=== PATIENT | male | born 1985 | race Caucasian/White ===

== ENCOUNTER 2018-04-28 09:30 | Inpatient (IN) | payer OTHER ==
--- NOTE | 2018-04-28 09:59 | EDPHY ---
HPI/HX/ROS/PE/MDM Narrative: CHIEF COMPLAINT: Back pain, bilateral lower extremity numbness HPI: This patient is a 32 year old male with history of multiple lumbar disc herniations. He follows up with Dr. Tang, neurosurgeon, for this. Yesterday afternoon at work, his low back pain became increasingly worse. He took two Celebrex yesterday and two today as prescribed, but has been unable to relive his pain. He woke this morning at 1am with severe pain. He has developed numbness and paresthesias in his bilateral lower extremities to his feet. He denies any incontinence of bowel or bladder. He called his neurosurgeon's office and was instructed to come to ER for further evaluation. His neurosurgeon has recommended surgical intervention in the past but he has avoided this. He denies any recent trauma or unusual strenuous activities. No recent illness. He denies fever, chest pain, shortness of breath, vomiting, headache, or other associated symptoms. REVIEW OF SYSTEMS: A comprehensive 10 system review of systems is otherwise negative aside from elements mentioned in the history of present illness and medical decision making. PMH: Lumbar disc herniation. History of GI bleed. 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 Lives in [place]. PHYSICAL EXAM: General:Patient is alert, in no acute distress. ENT:Eyes are normal to inspection. ENT inspection normal. Neck: Normal inspection. Full range of motion. Respiratory:No respiratory distress. Breath sounds normal bilaterally. Cardiovascular: Regular rate and rhythm. Strong peripheral pulses. Normal cap refill. Abdomen:The abdomen is nontender to palpation. There are no peritoneal signs. There are normal bowel sounds. Back: Normal to inspection. No tenderness to palpation. Skin: Normal color. No rash. Warm and dry. Extremities: Normal appearance. ROM in bilateral lower extremities is limited due to pain. Neuro: Oriented x3. Normal motor function. Normal sensory function. ED Course: 32 y/o male with known lumbar disc herniation presents with worsening low back pain and numbness and paresthesias in his bilateral lower extremities. Plan to consult with neurosurgery. Plan for labs incluidng CBC, chemistries. Plan to administer 0.5mg IV Dilaudid for pain relief. 10:30 ESPERANZA Mcintosh for neurosurgery, at bedside. Per nurse report, she has evaluated the patient. Neurosurgery requests MRI lumbar spine without contrast for further evaluation. 11:15 Patient continues to experience severe pain, worsened following his MRI. Plan to administer an additional 1mg IV Dilaudid for pain relief. 11:[address] Avila, radiologist. MRI shows multilevel degenerative disk / joint disease of the lumbar spine. Large central protrusion at L4-L5 that causes severe central spinal canal narrowing. Patient to be admitted. See neurosurgery consult note for details. - Data Points Imaging Results: Imaging Impressions Lumbar Spine MRI 04/28/18 10:36 Impression: Multilevel degenerative disk and degenerative joint disease of the lumbar spine superimposed on a component of congenital spinal stenosis. Most significant level is at L4-L5 where there is a large central protrusion that with the degenerative disk and degenerative joint disease causes severe central spinal canal narrowing. Please see detailed description by level above. Results called and discussed with Jose Figueroa MD, on 04/28/2018, 1145 hours. Laboratory Results: Laboratory Results 04/28/18 10:10 04/28/18 10:10 04/28/18 04/28/18 10:10 10:10 WBC 6.79 10^3/uL 10^3/uL (3.80-9.50) RBC 5.48 10^6/uL 10^6/uL (4.40-6.38) Hgb 16.0 g/dL g/dL (13.7-17.5) Hct 46.8 % % (40.0-51.0) MCV 85.4 fL fL (81.5-99.8) MCH 29.2 pg pg (27.9-34.1) MCHC 34.2 g/dL g/dL (32.4-36.7) RDW 12.3 % % (11.5-15.2) Plt Count 177 10^3/uL 10^3/uL (150-400) MPV 10.9 fL fL (8.7-11.7) Neut % (Auto) 68.5 % % (39.3-74.2) Lymph % (Auto) 23.7 % % (15.0-45.0) [place] % (Auto) 7.4 % % (4.5-13.0) Eos % (Auto) 0.0 % L % (0.6-7.6) Baso % (Auto) 0.3 % % (0.3-1.7) Nucleat RBC Rel Count 0.0 % % (0.0-0.2) Absolute Neuts (auto) 4.65 10^3/uL 10^3/uL (1.70-6.50) Absolute Lymphs (auto) 1.61 10^3/uL 10^3/uL (1.00-3.00) Absolute Monos (auto) 0.50 10^3/uL 10^3/uL (0.30-0.80) Absolute Eos (auto) 0.00 10^3/uL L 10^3/uL (0.03-0.40) Absolute Basos (auto) 0.02 10^3/uL 10^3/uL (0.02-0.10) Absolute Nucleated RBC 0.00 10^3/uL 10^3/uL (0-0.01) Immature Gran % 0.1 % % (0.0-1.1) Immature Gran # 0.01 10^3/uL 10^3/uL (0.00-0.10) Sodium 140 mEq/L mEq/L (135-145) Potassium 4.0 mEq/L mEq/L (3.3-5.0) Chloride 108 mEq/L mEq/L (97-110) Carbon Dioxide 20 mEq/l L mEq/l (22-31) Anion Gap 12 mEq/L mEq/L (8-16) BUN 13 mg/dL mg/dL (7-23) Creatinine 0.9 mg/dL mg/dL (0.7-1.3) Estimated GFR > 60 Glucose 100 mg/dL mg/dL (70-100) Calcium 9.9 mg/dL mg/dL (8.5-10.4) Medications Given: Acetaminophen (Tylenol) 1,000 mg PO Q8HRS [facility] Stop: 10/25/18 13:59 Last Admin: 04/28/18 15:07 Dose: 1,000 mg Gabapentin (Neurontin) 300 mg PO Q8HRS [facility] Stop: 10/25/18 13:59 Last Admin: 04/28/18 15:08 Dose: 300 mg Oxycodone HCl (Oxycodone Ir) 5 - 10 mg PO Q4HRS PRN PRN Reason: Pain, Severe Able to Take PO Stop: 05/08/18 13:56 Last Admin: 04/28/18 15:08 Dose: 5 mg Discontinued Medications Hydromorphone HCl (Dilaudid) 0.5 mg IVP EDNOW ONE Stop: 04/28/18 10:18 Last Admin: 04/28/18 10:21 Dose: 0.5 mg Hydromorphone HCl (Dilaudid) 1 mg IVP EDNOW ONE Stop: 04/28/18 11:28 Last Admin: 04/28/18 11:32 Dose: 1 mg Sodium Chloride (Ns) 1,000 mls @ 0 mls/hr IV EDNOW ONE; Wide Open PRN Reason: Protocol Stop: 04/28/18 12:46 Last Admin: 04/28/18 12:55 Dose: 1,000 mls General Time Seen by Provider: 04/28/18 09:38 Initial Vital Signs: Initial Vital Signs Temperature (C) 37.3 C 04/28/18 09:33 Heart Rate 98 04/28/18 09:33 Respiratory Rate 18 04/28/18 09:33 Blood Pressure 122/89 H 04/28/18 09:33 O2 Sat (%) 99 04/28/18 09:33 O2 Delivery Mode Room Air Allergies/Adverse Reactions: BEE STINGS Allergy (Uncoded 04/28/18 09:33) Home Medications: Medication Instructions Recorded Acetamn/Diphenhydramine 500/25 1 each PO HS PRN 04/28/18 [Tylenol PM (*)] celeCOXIB [CeleBREX] 100 mg PO BID 04/28/18 Departure - Departure Disposition: [facility] Inpatient Acute Clinical Impression: Lumbar disc herniation Low back pain with bilateral sciatica Qualifiers: Chronicity: acute Back pain laterality: unspecified Qualified Code(s): M54.42 - Lumbago with sciatica, left side Condition: Good Report Scribed for: Jose Figueroa Report Scribed by: Bettie Castanon Date of Report: 04/28/18 Time of Report: 11:42 Physician Review and Approval Statement: Portions of this note were transcribed by an ED scribe. I personally performed the history, physical exam, and medical decision making; and confirm the accuracy of the information in the transcribed note.
[2018-04-28] MEDS ORDERED: HYDROmorphONE/DILAUDID 2 MG/ML INJ IVP ONE ×2 (10:17→11:27)
[2018-04-28 10:27] LABS: PLATELET COUNT 177 10^3/uL (150-400)
[2018-04-28] MEDS ORDERED: NS 1,000 ML IV ONE (12:45)
--- NOTE | 2018-04-28 13:37 | GCON ---
REASON FOR CONSULTATION: Severe low back pain. HOSPITAL COURSE, HISTORY, AND MAJOR MEDICAL FINDINGS: The patient is a 32-year- old gentleman, who yesterday spontaneously developed severe low back pain, and increased feet numbness and tingling. He tried all of his typical modalities that have helped alleviate his pain before in the past including stretching, ice , and antiinflammatories. When these failed to alleviate any of his symptoms, he came to [facility] for further evaluation. He denies any loss of bowel or bladder control. He states that both his legs are equal, and he denies any focal weakness. REVIEW OF SYSTEMS: Review of systems is negative other than what is stated in the HPI. Please see the pertinent negatives and pertinent positives. PAST MEDICAL HISTORY: Significant for a GI bleed. PAST SURGICAL HISTORY: None other than GI scopes. ALLERGIES: Bee stings. HOME MEDICATIONS: Celebrex. FAMILY HISTORY: His father had a stroke. SOCIAL HISTORY: The patient does not smoke or use any illicit drugs. He occasionally will have an alcoholic beverage. PHYSICAL EXAM: VITALS: Blood pressure is 124/72, heart rate 79, respiratory rate 16, he is 96% on room air, and temperature is 37.6 degrees Celsius. GENERAL: The patient is in no acute distress. He is alert and oriented x3. He answers questions appropriately. His affect appropriate to given situation. NEUROLOGICAL: Cranial nerves 2 through 12 are grossly intact. EOMI and PERRLA. The patient is 5/5 and equal in his bilateral upper extremities including his deltoids, triceps, biceps, wrist flexors, extensors, interossei, and intrinsic chemical operations and training. MUSCULOSKELETAL: The patient's left lower extremity has pain. His hip flexion is somewhat limited due to pain, and he is 4+/5 due to restrictions from pain. His dorsiflexion, plantar flexion, and EHL bilaterally are 5/5. ASSESSMENT AND PLAN: The patient is a 32-year-old gentleman, who presented to the emergency room with severe low back pain, and bilateral feet numbness and tingling. We at this point will go ahead and obtain an MRI to further evaluate his lumbar spine. They will try to treat his pain here while he is in the emergency room. This was discussed in detail with Dr. Jonathan Tang, who will be seeing the patient later today. If there is any change in neurologic or motor exam, please notify Neurosurgery. NEUROSURGERY ATTENDING NOTE I reviewed his imagines, which shows severe spinal stenos at L4/5. I reviewed that we could try him on some more powerful medications, and if he is improved, then possibly discharge him home and bring him back for surgery. His pain is currently out of control and he is not able to function. If we cannot get his pain controlled, then he will require surgery to decompress his canal. All questions answered. /[id number]/MODL MTDD
[2018-04-28] MEDS ORDERED: LACTULOSE 20 GM/30 ML UDCUP PO PRN (13:57)
[2018-04-28] MEDS: ACETAMINOPHEN 500 MG TAB PO SCH ×2 (15:07→22:00)
[2018-04-28] MEDS: oxyCODONE IR 5 MG TAB PO PRN ×3 (15:08→20:34)
[2018-04-28] MEDS: GABAPENTIN 300 MG CAP PO SCH ×2 (15:08→22:00)
[2018-04-28] MEDS: ONDANSETRON DISINTEGRATING 4 MG TAB PO PRN (15:54)
[2018-04-28] MEDS: METHOCARBAMOL 750 MG TAB PO PRN ×2 (15:55→22:00)
[2018-04-28] MEDS: FAMOTIDINE 20 MG TAB PO SCH ×2 (17:37→20:34)
[2018-04-28] MEDS: KETOROLAC 30 MG/1 ML SDV IVP PRN (17:37)
[2018-04-28] MEDS: diphenhydrAMINE 25 MG CAP PO PRN ×2 (20:33→21:38)
[2018-04-28] MEDS: SENNOSIDES/DOCUSATE SODIUM TAB PO SCH (20:34)
[2018-04-29] MEDS: GABAPENTIN 300 MG CAP PO SCH ×3 (06:01→21:49)
[2018-04-29] MEDS: ACETAMINOPHEN 500 MG TAB PO SCH ×3 (06:01→21:50)
[2018-04-29] MEDS: METHOCARBAMOL 750 MG TAB PO PRN ×3 (06:01→20:06)
--- NOTE | 2018-04-29 08:41 | NEUSURGPN ---
Assessment/Plan: A: 32 yo M admitted with severe back and leg pain, right leg numbness and foot weakness. He has a large L45 disc herniation P: -Per pt he had an episode of bladder incontinence last pm, now improved. -MRI L spine reviewed and shows a large L45 disc herniation -PT/OT -Pain management - will trial [place] and oxycodone makes him itch -NPO in anticipation of possible surgery -D/w Dr Tang -Call NS with any neuro changes Subjective: Pt resting in bed, states he had groin numbness and slight bladder incontinence overnight. Now improved. Has left leg pain, right leg numbness Objective: AAOx3 NAD VSS MAEx4 Motor 5/5 RLE, LLE is 5/5 throughout with exception of R EHL and DF 4-/5 +LT - diminished sensation RLE Urinary Catheter in Place: No - Physician Discussed Patient with : [facility] Physical Exam - Vitals, I&O, Labs I and O 04/28/18 04/29/18 04/30/18 05:59 05:59 05:59 Intake Total 500 Output Total 550 Balance -50 Weight 113.398 kg Intake: Oral (ml) 500 Output: Urine (ml) 550 Urinal 550 Other: Number of Voids Urinal 1 Vital Signs Temp Pulse Resp BP Pulse Ox 36.8 C 77 15 111/64 92 04/29/18 07:30 04/29/18 07:30 04/29/18 07:30 04/29/18 07:30 04/29/18 07:30 ICD10 Worksheet Patient Problems: Problems Problem Status Onset Low back pain with bilateral sciatica Acute Lumbar disc herniation Acute
[2018-04-29] MEDS: ONDANSETRON 4 MG/2 ML VIAL IVP PRN ×2 (08:52→16:16)
[2018-04-29] MEDS: HYDROCODONE/APAP 5/325 TAB PO PRN ×4 (08:53→21:49)
[2018-04-29] MEDS: SENNOSIDES/DOCUSATE SODIUM TAB PO SCH ×2 (08:54→20:06)
[2018-04-29] MEDS: FAMOTIDINE 20 MG TAB PO SCH ×2 (08:55→20:06)
--- NOTE | 2018-04-29 10:14 | ASMTCMCOM ---
CM Note CM Note Notes: Pt's chart reviewed for D/C planning. Pt is a 32 y/o male with a hx of multiple lumbar disc herniation who came to the ED yesterday due to severe pain, numbness and paresthesias in his bilateral lower extremities. MRI showed multilevel degenerative disc and degenerative joint disease of the lumbar spine superimposed on a component of congenital spinal stenosis. His current pain is out of control and he is unable to function. Surgery planned for 04/30. Surgery would be a bilateral 4/5 hemilaminotomy with disectomy and central decompression. Pt lives in [place]. His mother also lives in [place], [place], . CM will follow. D/C Plan: TBD Date Signed: 04/29/2018 10:13 AM Electronically Signed By:Corinne Smith
[2018-04-29] MEDS ORDERED: HYDROmorphone HCL 0.5 MG/0.5 ML SYR IVP PRN (10:40)
[2018-04-29] MEDS ORDERED: ACETAMN/DIPHENHYDRAMINE 500/25MG TAB PO PRN (12:54)
--- NOTE | 2018-04-29 15:20 | PDMN ---
Medical Necessity Medical necessity: Change to inpt as of 04/29/18 @ 1440. Pt meets inpt criteria per MD order and [facility], Lumbar Diskectomy, Foraminotomy, or Laminotomy. 32 y/o admitted w/severe back pain and leg pain, R leg numbness and foot weakness, MRI od spine shows large L4/5 disc herniation, had slight bladder incontinence over night. Due to pt's persistent symptoms, high levels of pain, and inability to perform ADL's he will have surgical intervention: bilateral L4/5 hemilaminotomy w/discectomy and central decompression. Anticipate >2MN for pain management, pending sugery, and post-op care.
[2018-04-29] MEDS: BISACODYL 10 MG SUPP PR PRN (16:19)
[2018-04-29] MEDS: POLYETHYLENE GLYCOL 3350 17 GM PKT PO PRN (16:19)
[2018-04-29] MEDS: ONDANSETRON DISINTEGRATING 4 MG TAB PO PRN (20:17)
[2018-04-29] MEDS: TAMSULOSIN HCL 0.4 MG CAP PO SCH (21:49)
[2018-04-30] MEDS: KETOROLAC 30 MG/1 ML SDV IVP PRN (01:44)
[2018-04-30] MEDS: METHOCARBAMOL 750 MG TAB PO PRN (04:13)
[2018-04-30] MEDS: HYDROCODONE/APAP 5/325 TAB PO PRN (04:13)
[2018-04-30] MEDS: GABAPENTIN 300 MG CAP PO SCH ×3 (05:53→21:26)
[2018-04-30] MEDS: ACETAMINOPHEN 500 MG TAB PO SCH ×5 (05:54→21:26)
[2018-04-30] MEDS ORDERED: ceFAZolin 3 GM in D5W 100 ML IV ONE (06:00)
[2018-04-30] MEDS ORDERED: BUPIVACAINE 0.25% 30 ML SDV ONE (07:24)
[2018-04-30] MEDS ORDERED: BACITRACIN 50,000 UNITS/10 ML SYR IRR ONE (07:25)
[2018-04-30] MEDS ORDERED: EPINEPHrine 1 MG/ML INJ ONE (07:25)
[2018-04-30] MEDS ORDERED: THROMBIN (BOVINE) 20,000 UNIT VIAL TP ONE (07:26)
[2018-04-30] MEDS ORDERED: CHLORHEXIDINE GLUC HIBICLENS 118 ML BTL TP ONE (07:26)
--- NOTE | 2018-04-30 07:26 | NEUSURGPN ---
<Toby Gaytan - Last Filed: 04/30/18 07:23> Assessment/Plan: 32 yo M admitted with severe back and leg pain, right leg numbness and foot weakness, urinary retention d/t large L45 disc herniation. Plan for OR this am for L45 b/l Hemilaminotomy and central decompression NPO Orders in Subjective: continued issues with pain and weakness. States he cant feel below his waste very well. now bowel incontinence, severe pain after attempting a BM. Objective: laying in bed, NAD AAOx4 EOMI, pEARLA MAEx4, BLE 5/5 except 3/5 BLE PF/DF, 2/5 EHL (possibly some pain limiting effort ) Sensation decreased BLE thighs and distally Martin in place - Physician Discussed Patient with : [facility] Patient Seen by : [facility] Physical Exam - Vitals, I&O, Labs I and O 04/29/18 04/30/18 05/01/18 05:59 05:59 05:59 Intake Total 800 Output Total 3100 Balance -2300 Intake: Oral (ml) 800 Output: Urine (ml) 3100 Catheter 3100 Other: Bladder Scan Volume (ml) Bedside Commode 731 Vital Signs Temp Pulse Resp BP Pulse Ox 36.6 C 84 16 107/58 L 100 04/30/18 07:16 04/30/18 07:16 04/30/18 07:16 04/30/18 07:16 04/30/18 07:16 ICD10 Worksheet Patient Problems: Problems Problem Status Onset Low back pain with bilateral sciatica Acute Lumbar disc herniation Acute <Jonathan Tang - Last Filed: 04/30/18 07:34> Assessment/Plan: Met with the patient this morning. Will plan for surgery at the L4/5 level to address his severe stenosis and disc herniation. All questions answered. Consents signed and site marked. Neurosurgery Physical Exam - Vitals, I&O, Labs I and O 04/29/18 04/30/18 05/01/18 05:59 05:59 05:59 Intake Total 800 Output Total 3100 Balance -2300 Intake: Oral (ml) 800 Output: Urine (ml) 3100 Catheter 3100 Other: Bladder Scan Volume (ml) Bedside Commode 731 Vital Signs Temp Pulse Resp BP Pulse Ox 36.6 C 84 16 107/58 L 100 04/30/18 07:16 04/30/18 07:16 04/30/18 07:16 04/30/18 07:16 04/30/18 07:16
[2018-04-30] MEDS ORDERED: SCOPOLAMINE HYDROBROMIDE 1 MG/3 DAYS PATCH TD ONE ×2 (07:55→07:59)
[2018-04-30] MEDS ORDERED: MIDAZOLAM 2 MG/2 ML VIAL ONE (07:58)
[2018-04-30] MEDS ORDERED: MIDAZOLAM 2 MG/2 ML VIAL IVP ONE (08:00)
[2018-04-30] MEDS ORDERED: ceFAZolin 2 GM/DEXTROSE 100 ML IV ONE (08:00)
--- NOTE | 2018-04-30 08:00 | PDANEPAE ---
ANE History of Present Illness herniated disc ANE Past Medical History - Pulmonary History Hx Oxygen in Use at Home: No Hx Sleep Apnea: Yes Sleep Apnea Screening Result - Last Documented: Positive - Endocrine History Hx Diabetes: No ANE Review of Systems Review of Systems: ANE Patient History - Allergies Allergies/Adverse Reactions: BEE STINGS Allergy (Uncoded 04/28/18 09:33) - Home Medications Home Medications: Acetamn/Diphenhydramine 500/25 [Tylenol PM (*)] 1 each PO HS PRN 04/28/18 [Last Taken 04/27/18] celeCOXIB [CeleBREX] 100 mg PO BID 04/28/18 [Last Taken 04/28/18 200mg] - NPO status NPO Since - Liquids (Date): 04/30/18 NPO Since - Liquids (Time): 00:00 NPO Since - Solids (Date): 04/30/18 NPO Since - Solids (Time): 00:00 - Smoking Hx Smoking Status: Never smoked ANE Labs/Vital Signs - Labs Result Diagrams: 04/28/18 10:10 04/28/18 10:10 - Vital Signs Blood Pressure: 107/58 Heart Rate: 84 Respiratory Rate: 16 O2 Sat (%): 100 Height: 182.88 cm Weight: 113.398 kg ANE Physical Exam - Airway Neck exam: FROM Mallampati Score: Class 1 Mouth exam: normal dental/mouth exam - Pulmonary Pulmonary: no respiratory distress - Cardiovascular Cardiovascular: regular rate and rhythym - ASA Status ASA Status: I ANE Anesthesia Plan Anesthesia Plan: general endotracheal anesthesia
[2018-04-30] MEDS ORDERED: fentaNYL 100 MCG/2 ML INJ ONE ×2 (08:02→08:03)
[2018-04-30] MEDS ORDERED: HYDROmorphONE/DILAUDID 2 MG/ML INJ ONE (08:03)
[2018-04-30] MEDS ORDERED: PROPOFOL 200 MG/20 ML VIAL ONE (08:03)
[2018-04-30] MEDS ORDERED: HYDROmorphONE/DILAUDID 1 MG/ML INJ IVP PRN (09:42)
[2018-04-30] MEDS ORDERED: PROMETHAZINE HCL 25 MG/ML INJ IVP PRN (09:42)
[2018-04-30] MEDS ORDERED: MEPERIDINE 25 MG/0.5 ML AMP IVP PRN (09:42)
[2018-04-30] MEDS ORDERED: fentaNYL 100 MCG/2 ML INJ IVP PRN (09:42)
[2018-04-30] MEDS ORDERED: ONDANSETRON 4 MG/2 ML VIAL IVP PRN (09:42)
[2018-04-30] MEDS ORDERED: NALOXONE HCL 0.4 MG/ML INJ IVP PRN (09:42)
[2018-04-30] MEDS ORDERED: DEXAMETHASONE 4 MG/ML VIAL ONE (10:01)
[2018-04-30] MEDS ORDERED: ROCURONIUM 50 MG/5 ML VIAL ONE (10:01)
[2018-04-30] MEDS ORDERED: ONDANSETRON 4 MG/2 ML VIAL ONE ×2 (10:01→10:26)
[2018-04-30] MEDS ORDERED: ePHEDrine SULFATE 25 MG/5 ML SYR ONE (10:01)
[2018-04-30] MEDS ORDERED: PHENYLEPHRINE HCL 100 MCG/ML SYR ONE (10:01)
--- NOTE | 2018-04-30 10:22 | POSTANESTH ---
Post Anesthetic Evaluation Cardiovascular Status: Normal, Stable Respiratory Status: Normal, Stable Level of Consciousness/Mental Status: Can Participate in Eval Pain Control: Adequate, Prn Tx Ordered Nausea/Vomiting Control: Adequate, Prn Tx Ordered Complications Possibly Related to Anesthesia: None Noted
--- NOTE | 2018-04-30 10:37 | GOP ---
DATE OF OPERATION: 04/30/2018 SURGEON: Jonathan Tang MD DIRECTOR OF MANAGED SERVICES: None. ANESTHESIA: General. PREOPERATIVE DIAGNOSIS: 1. L4-L5 severe spinal stenosis secondary to broad-based disk bulge and herniation. 2. Progressive neurological deficit including foot weakness, numbness, and urinary retention. POSTOPERATIVE DIAGNOSIS: 1. L4-L5 severe spinal stenosis secondary to broad-based disk bulge and herniation. 2. Progressive neurological deficit including foot weakness, numbness, and urinary retention. PROCEDURE PERFORMED: 1. L4-L5 bilateral hemilaminotomy with medial facetectomy and lateral recess decompression with central decompression, microdiskectomy, and nerve root decompression. 2. Use of intraoperative fluoroscopy, less than 1 hour physician time. 3. Use of neuromonitoring. 4. Use of operating microscope. FINDINGS: large free fragment disc herniation SPECIMENS: None. ESTIMATED BLOOD LOSS: 20 mL INDICATIONS: The patient is a 32-year-old gentleman who unfortunately has been suffering from progressive low back pain. He presented to the emergency department and imaging demonstrated a large central disk herniation at L4-5 with severe spinal stenosis. The patient was managed medically, but did not improve. After discussion of the risks, benefits, and treatment alternatives, we decided to proceed with surgery as described above. DESCRIPTION OF PROCEDURE: The patient was brought to operating theater and underwent general endotracheal anesthesia without complications. He had Venodynes, MILLY hose, and appropriate lines placed by Anesthesia. He was flipped prone on a Aron frame and all bony processes inspected and padded. The lower lumbar region was prepped and draped in usual sterile surgical fashion. A time-out was completed per protocol. The patient received antibiotics within 1 hour of incision. Using lateral fluoroscopy and spinal needle, we picked our entry point to the L4 -5 level. This was marked in the midline. The incision was then infiltrated with Marcaine with epinephrine. The incision was taken down with the scalpel blade, and using the monopolar, taken down the midline through the lumbodorsal fascia. A subperiosteal dissection was carried out to the medial facet joints of L4-5 bilaterally. The microscope was brought into field to assist with microscopic dissection and to maintain illumination and magnification. We again confirmed our level using lateral fluoroscopy. Using the bur tip on the drill bit and Kerrison punches, we completed a bilateral L4-L5 hemilaminotomy with medial facetectomies and lateral recess decompressions. We resected ligamentum flavum bilaterally. We first moved to the left side, where we retracted the thecal sac medially, incised the disk space, and completed a left- sided diskectomy. We reached across the midline and were able to feel a large piece of disk herniation which I could not mobilize with the angled nerve hooks. We then moved to the right side, where we again resected ligamentum flavum. We reached across the midline and he had a very large free fragment that I removed. The patient was noted to have an improvement in his neuromonitoring at that point. I then reached across the midline and everything felt well decompressed on manual palpation. There was some thickened ligament in the midline which I did not feel could or should be removed safely. The wound was irrigated copiously with bacitracin irrigation and then closed in multiple layers using Vicryl sutures for the deep layers and Dermabond for the skin. The patient's wound was dressed sterilely. He was then flipped supine onto the transport cart, awakened, extubated, and taken to the recovery room in improved neurologic condition. Please note, the sponge, needle, and instrument counts were correct at the end of the case, and we had a significant improvement in the sensory, and some sense of motor improvement on the neuro monitoring. COMPLICATIONS: None. /[id number]/MODL MTDD
[2018-04-30] MEDS ORDERED: ONDANSETRON DISINTEGRATING 4 MG TAB PO PRN (11:05)
[2018-04-30] MEDS ORDERED: KETOROLAC 30 MG/1 ML SDV IVP PRN (11:11)
[2018-04-30] MEDS: ONDANSETRON 4 MG/2 ML VIAL IVP PRN ×2 (11:45→17:29)
--- NOTE | 2018-04-30 13:37 | NEUSURGPN ---
Date of Surgery: 04/30/18 Post Op Day: 0 Assessment/Plan: 32 yo M s/p L45 b/l Hemilaminotomy and central decompression severe back and leg pain, right leg numbness and foot weakness, urinary retention d/t large L45 disc herniation. Plan ADAT Pain control PT/OT Martin out this afternoon for voiding trial, tamsulosin if needed DVT ppx MILLY's, SCDs, hold chemo ppx til tomorrow DW Dr. Tang Subjective: Leg pain improved, still with numbness and tingling Objective: laying in bed, NAD AAOx4 EOMI, pEARLA MAEx4, BLE 5/5 except: 3/5 BL PF/DF, 2/5 EHL Sensation decreased BLE thighs and distally Martin in place - Physician Discussed Patient with : [facility] Physical Exam - Vitals, I&O, Labs I and O 04/29/18 04/30/18 05/01/18 05:59 05:59 05:59 Intake Total 800 800 Output Total 3100 615 Balance -2300 185 Weight 113.398 kg Intake: Oral (ml) 800 IV Intake (ml) 800 Output: Urine (ml) 3100 600 Catheter 3100 600 Estimated Blood Loss (ml) 15 Other: Bladder Scan Volume (ml) Bedside Commode 731 Vital Signs Temp Pulse Resp BP Pulse Ox 36.9 C 66 16 94/51 L 98 04/30/18 13:18 04/30/18 13:18 04/30/18 13:18 04/30/18 13:18 04/30/18 13:18 ICD10 Worksheet Patient Problems: Problems Problem Status Onset Low back pain with bilateral sciatica Acute Lumbar disc herniation Acute
[2018-04-30] MEDS: ceFAZolin 2 GM/DEXTROSE 100 ML IV SCH ×2 (16:29→23:56)
[2018-04-30] MEDS: SENNOSIDES/DOCUSATE SODIUM TAB PO SCH ×2 (16:30→21:27)
[2018-04-30] MEDS: FAMOTIDINE 20 MG TAB PO SCH ×2 (16:31→21:26)
[2018-04-30] MEDS: TAMSULOSIN HCL 0.4 MG CAP PO SCH (16:35)
[2018-04-30] MEDS: MAGNESIUM HYDROXIDE 30 ML UDCUP PO PRN (16:39)
[2018-04-30] MEDS: BISACODYL 10 MG SUPP PR PRN (20:33)
[2018-05-01] MEDS: GABAPENTIN 300 MG CAP PO SCH ×3 (05:43→23:16)
[2018-05-01] MEDS: ACETAMINOPHEN 500 MG TAB PO SCH ×4 (05:43→23:16)
[2018-05-01] MEDS: FAMOTIDINE 20 MG TAB PO SCH ×2 (08:55→23:16)
[2018-05-01] MEDS: MAGNESIUM HYDROXIDE 30 ML UDCUP PO PRN (08:57)
[2018-05-01] MEDS: SENNOSIDES/DOCUSATE SODIUM TAB PO SCH ×2 (08:58→23:16)
[2018-05-01] MEDS: TAMSULOSIN HCL 0.4 MG CAP PO SCH (08:58)
[2018-05-01] MEDS ORDERED: ENOXAPARIN 40 MG/0.4 ML SYR SC SCH (09:00)
--- NOTE | 2018-05-01 10:36 | NEUSURGPN ---
<Toby Gaytan - Last Filed: 05/01/18 10:16> Assessment/Plan: 32 yo M POD#1 s/p L45 b/l Hemilaminotomy and central decompression severe back and leg pain, right leg numbness and foot weakness, urinary retention d/t large L45 disc herniation. He continues to have some weakness in his feet as well as endorsing some saddle anesthesia which developed sometime wednesday and we were not aware of until this am. no incontinence. Plan Pain control- doing well no longer requiring narcotics PT/OT-Mobilize, may need AFO's per PT recs. Burleson out this am. Follow B/B, DVT ppx MILLY's, SCDs, Lovenox Dispo- will keep today and work with pt, plan for DC tomorrow, PT has requested consult for inpatient rehab. pt seen by and DW Dr. Tang Objective: upright in bed, NAD AAOx4 EOMI, PEARLA MAEx4, BLE 5/5 except: 3/5 BL PF/DF, 2/5 EHL Sensation decreased BLE thighs and distally Burleson in place Subjective: pain is better. quite concerned about weakness and hasn't had a BM. complains of continues numbness in his groin which appears to have started Wednesday afternoon/evening Objective: Urinary Catheter in Place: Yes Urinary Catheter Indication: Other (Use Comment) (out this am) - Physician Discussed Patient with : Clyde Patient Seen by : Clyde Neurosurgery Physical Exam - Vitals, I&O, Labs I and O 04/30/18 05/01/18 05/02/18 05:59 05:59 05:59 Intake Total 800 2600 Output Total 3100 1615 Balance -2300 985 Weight 113.398 kg Intake: Oral (ml) 800 1500 IV Intake (ml) 1000 IV Infused (ml) 100 ceFAZolin 2 GM/DEXTROSE 100 100 ml @ 200 mls/hr IV Q8H [facility] Rx#:[id number] Output: Urine (ml) 3100 1600 Catheter 3100 1600 Estimated Blood Loss (ml) 15 Other: Bladder Scan Volume (ml) Bedside Commode 731 Vital Signs Temp Pulse Resp BP Pulse Ox 36.6 C 70 16 100/63 100 05/01/18 08:00 05/01/18 08:00 05/01/18 08:00 05/01/18 08:00 05/01/18 08:00 ICD10 Worksheet Patient Problems: Problems Problem Status Onset Low back pain with bilateral sciatica Acute Lumbar disc herniation Acute <Jonathan Tang - Last Filed: 05/01/18 16:35> Assessment/Plan: I met with the patient this morning. He relates having developed saddle anesthesia on Wednesday night and bilateral foot weakness (he only had unilateral right foot weakness on Wednesday night). This morning his pain was zero and his neurologic examination was stable from pre-op. I then received a call from his nurse that he developed urinary incontinence and some stool smearing this afternoon (no bowel incontinence). I ordered a lumbar spine MRI which, on sagittal images, shows excellent decompression, but on the axial, there appears to be a possible reherniation or new herniation of disc material causing lateral stenosis. I reviewed the films with my partner Dr Garcia and Dr Kee and both did not feel this would explain his symptoms. They both felt tht watchful waiting would be reasonable for 24 hours. Given his symptoms, however , I think a full decompression would be best rather than close monitoring. Dr Kee will see the patient and explain my rationale and I will try to get him booked for surgery today. Neurosurgery Physical Exam - Vitals, I&O, Labs I and O 04/30/18 05/01/18 05/02/18 05:59 05:59 05:59 Intake Total 800 2600 Output Total 3100 1615 Balance -2300 985 Weight 113.398 kg Intake: Oral (ml) 800 1500 IV Intake (ml) 1000 IV Infused (ml) 100 ceFAZolin 2 GM/DEXTROSE 100 100 ml @ 200 mls/hr IV Q8H [facility] Rx#:[id number] Output: Urine (ml) 3100 1600 Catheter 3100 1600 Estimated Blood Loss (ml) 15 Other: Number of Voids Incontinence 1 Number of Stools Incontinence 1 Bladder Scan Volume (ml) Bedside Commode 731 Incontinence 999 Vital Signs Temp Pulse Resp BP Pulse Ox 36.8 C 73 17 116/64 93 05/01/18 15:35 05/01/18 15:35 05/01/18 15:35 05/01/18 15:35 05/01/18 15:35
--- NOTE | 2018-05-01 14:15 | ASMTCMCOM ---
CM Note CM Note Notes: PT/OT recommending inpatient rehab. Pt lives in [facility] and [facility] [phone] F [phone]. Referral sent via [employer]. There is no one available in Admissions today. Not sure if they will need a PASRR, asked them to let us know. CM will continue to follow. Date Signed: 05/01/2018 02:15 PM Electronically Signed By:ELLIOTT Catherine
[2018-05-01] MEDS ORDERED: THROMBIN (BOVINE) 20,000 UNIT VIAL TP ONE (18:58)
[2018-05-01] MEDS ORDERED: CHLORHEXIDINE GLUC HIBICLENS 118 ML BTL TP ONE (18:58)
[2018-05-01] MEDS ORDERED: BACITRACIN ZINC 14.2 GM OINTTUBE TP ONE (18:58)
[2018-05-01] MEDS ORDERED: BACITRACIN 50,000 UNITS/10 ML SYR IRR ONE (18:59)
[2018-05-01] MEDS ORDERED: BUPIVACAINE 0.25% 30 ML SDV ONE (18:59)
[2018-05-01] MEDS ORDERED: EPINEPHrine 1 MG/ML INJ ONE (18:59)
[2018-05-01] MEDS ORDERED: SCOPOLAMINE HYDROBROMIDE 1 MG/3 DAYS PATCH TD ONE ×2 (20:12→20:14)
[2018-05-01] MEDS ORDERED: MIDAZOLAM 2 MG/2 ML VIAL IVP ONE (20:13)
[2018-05-01] MEDS ORDERED: CEFAZOLIN 2 GM/DEXTROSE/100 ML BAG IV ONE (20:14)
[2018-05-01] MEDS ORDERED: ceFAZolin 2 GM/DEXTROSE 100 ML IV ONE (20:14)
--- NOTE | 2018-05-01 20:15 | PDANEPAE ---
ANE History of Present Illness l4l5 disc herniation ANE Past Medical History - Pulmonary History Hx Oxygen in Use at Home: No Hx Sleep Apnea: Yes Sleep Apnea Screening Result - Last Documented: Positive - Endocrine History Hx Diabetes: No ANE Review of Systems Review of Systems: ANE Patient History - Allergies Allergies/Adverse Reactions: BEE STINGS Allergy (Uncoded 04/28/18 09:33) - Home Medications Home Medications: Acetamn/Diphenhydramine 500/25 [Tylenol PM (*)] 1 each PO HS PRN 04/28/18 [Last Taken 04/27/18] celeCOXIB [CeleBREX] 100 mg PO BID 04/28/18 [Last Taken 04/28/18 200mg] - NPO status NPO Since - Liquids (Date): 04/30/18 NPO Since - Liquids (Time): 00:00 NPO Since - Solids (Date): 04/30/18 NPO Since - Solids (Time): 00:00 - Smoking Hx Smoking Status: Never smoked ANE Labs/Vital Signs - Labs Result Diagrams: 04/28/18 10:10 04/28/18 10:10 - Vital Signs Blood Pressure: 116/64 Heart Rate: 73 Respiratory Rate: 17 O2 Sat (%): 93 Height: 182.88 cm Weight: 113.398 kg ANE Physical Exam - Airway Neck exam: FROM Mallampati Score: Class 1 Mouth exam: normal dental/mouth exam - Pulmonary Pulmonary: no respiratory distress - Cardiovascular Cardiovascular: regular rate and rhythym - ASA Status ASA Status: I ANE Anesthesia Plan Anesthesia Plan: general endotracheal anesthesia
[2018-05-01] MEDS ORDERED: MIDAZOLAM 2 MG/2 ML VIAL ONE (20:16)
[2018-05-01] MEDS ORDERED: fentaNYL 100 MCG/2 ML INJ ONE ×2 (20:18)
[2018-05-01] MEDS ORDERED: HYDROmorphONE/DILAUDID 2 MG/ML INJ ONE (20:18)
[2018-05-01] MEDS ORDERED: PROPOFOL 200 MG/20 ML VIAL ONE (20:19)
[2018-05-01] MEDS ORDERED: PROMETHAZINE HCL 25 MG/ML INJ IVP PRN (20:50)
[2018-05-01] MEDS ORDERED: HYDROCODONE/APAP 5/325 TAB PO PRN (20:50)
[2018-05-01] MEDS ORDERED: ONDANSETRON 4 MG/2 ML VIAL IVP PRN (20:50)
[2018-05-01] MEDS ORDERED: MEPERIDINE 25 MG/0.5 ML AMP IVP PRN (20:50)
[2018-05-01] MEDS ORDERED: DIAZEPAM 5 MG/ML 1 ML SYR IVP PRN (20:50)
[2018-05-01] MEDS ORDERED: NALOXONE HCL 0.4 MG/ML INJ IVP PRN (20:50)
[2018-05-01] MEDS ORDERED: oxyCODONE IR 5 MG TAB PO PRN (20:50)
[2018-05-01] MEDS ORDERED: fentaNYL 100 MCG/2 ML INJ IVP PRN (20:50)
[2018-05-01] MEDS ORDERED: HYDROmorphONE/DILAUDID 1 MG/ML INJ IVP PRN (20:50)
--- NOTE | 2018-05-01 21:56 | POSTOPPROG ---
Post Op Note Date of Operation: 05/01/18 Surgeon: Jonathan Tang Alterations Supervisor: shane hall, PAC Anesthesiologist: amol Kendall Anesthesia: GET(General Endotracheal) Pre-op Diagnosis: lumbar stenosis w cauda equina symtpoms Post-op Diagnosis: Lumbare stenosis Indication: cauda equina type symptoms Procedure: L45 laminectomy and exploration of wound Findings: well decompressed L45 thecal sac Inf/Abcess present in the surg proc area at time of surgery?: No Depth: Organ Space EBL: Minimal
--- NOTE | 2018-05-01 21:59 | NEUSURGPN ---
Assessment/Plan: 32 yo M POD#1 s/p L45 b/l Hemilaminotomy and central decompression severe back and leg pain, right leg numbness and foot weakness, urinary retention d/t large L45 disc herniation. POD#0 laminectomy L45 for Continued weakness and bowel/ bladder symptoms including incontinence. Plan Pain control PT/OT-Mobilize Continue pierre overnight DVT ppx MILLY's, SCDs, Lovenox POD#1 Dispo planning -PT has requested consult for inpatient rehab, may need one more day of recovery. pt seen by and DW Dr. Tang Subjective: Groggy post anesthesia Objective: groggy post anesthesia NAD AAOx4 EOMI, PEARLA MAEx4, BLE 5/5 except: 3/5 BL PF/DF, 2/5 EHL Sensation decreased BLE thighs and distally Pierre in place Catheter Insertion Date: 05/01/18 Neurosurgery Physical Exam - Vitals, I&O, Labs I and O 04/30/18 05/01/18 05/02/18 05:59 05:59 05:59 Intake Total 800 2600 Output Total 3100 1615 900 Balance -2300 985 -900 Weight 113.398 kg 113.398 kg Intake: Oral (ml) 800 1500 IV Intake (ml) 1000 IV Infused (ml) 100 ceFAZolin 2 GM/DEXTROSE 100 100 ml @ 200 mls/hr IV Q8H [facility] Rx#:[id number] Output: Urine (ml) 3100 1600 900 Catheter 3100 1600 900 Estimated Blood Loss (ml) 15 Other: Number of Voids Incontinence 1 Number of Stools Incontinence 1 Bladder Scan Volume (ml) Bedside Commode 731 Incontinence 999 Vital Signs Temp Pulse Resp BP Pulse Ox 36.8 C 73 17 116/64 93 05/01/18 17:21 05/01/18 20:15 05/01/18 20:15 05/01/18 20:15 05/01/18 20:15 ICD10 Worksheet Patient Problems: Problems Problem Status Onset Low back pain with bilateral sciatica Acute Lumbar disc herniation Acute
--- NOTE | 2018-05-01 22:24 | GOP ---
DATE OF OPERATION: 05/01/2018 SURGEON: Jonathan Tang MD MISSION WORKER: Toby Gaytan PA-C. PREOPERATIVE DIAGNOSIS: 1. Recurrent stenosis L4-L5 status post microdiskectomy and bilateral hemilaminotomy. 2. Continued neurological deficit including bilateral foot weakness and questionable bowel and bladder dysfunction. POSTOPERATIVE DIAGNOSIS: 1. Recurrent stenosis L4-L5 status post microdiskectomy and bilateral hemilaminotomy. 2. Continued neurological deficit including bilateral foot weakness and questionable bowel and bladder dysfunction. 3. Ventral thickened PLL. PROCEDURE PERFORMED: 1. Exploration of prior L4-L5 hemilaminotomy, redo-L4-L5 decompressive laminectomy and spinal cord decompression. 2. Use of intraoperative fluoroscopy, less than 1 hour physician time. 3. Use of neuromonitoring. 4. Use of operating microscope. FINDINGS: The PLL appeared to be thickened with no evidence of any acute disk herniations. SPECIMENS: None. INDICATIONS: The patient is a 32-year-old gentleman who presented to the hospital with progressive low back pain. The patient developed progressive lower extremity weakness. On the evening of the the patient states he developed some saddle anesthesia with progressive weakness into the left side. The patient was taken to surgery on the morning of April for bilateral L4-5 hemilaminotomy and microdiskectomy. At that surgical intervention a large free fragment of disk material was retrieved and removed and the patient had improvement in his neuromonitoring, both on the sensory and motor examination. The patient was doing quite well from a pain standpoint and then developed 1 bout of bowel and bladder incontinence on the April. MRI demonstrated a good decompression at the level of the surgery, however, more cranial, approximately 2 mm from his decompression site he appeared to have moderate stenosis from a questionable new disk herniation versus thickened ligament versus hematoma. Given the patient's new symptomatology and his MRI findings I recommended proceeding with surgery as described above. I also reviewed the imaging studies with 2 of my partners who felt that close and continued monitoring would be reasonable instead of surgery.However, given his young age and the questionable stenosis on MRI I felt it was best to take him to the operating theater for a full decompression to provide him the best chance of neurologic recovery. DESCRIPTION OF PROCEDURE: The patient was brought to the operating theater and underwent general endotracheal anesthesia without complications. Venodynes, MILLY hose, and the appropriate lines were placed by Anesthesia. He was flipped prone on the Aron frame and all bony processes inspected and padded. The previous lumbar incision was identified and the previous Dermabond glue removed. This area was then prepped and draped in the usual sterile surgical fashion. A time-out was completed per protocol. The patient received antibiotics within 1 hour of incision. The incision was opened up sharply with pickups and scissors and the previous sutures then removed. We continued our dissection toward the bilateral hemilaminotomy defect and a deep retractor was placed to maintain our exposure. He had evidence of hematoma within the surgical cavity which were removed with the irrigation and suction. At this point, the microscope was brought into the field to assist with microscopic dissection and maintain illumination magnification. I then used the osorio tip on the drill bit, Kerrison punches, Leksell rongeur to complete a redo-decompressive laminectomy at the L4-5 level. We also took the decompression more cranially, approximately 2-3 mm. I then retracted the thecal sac medially from both the left and right sides and I did not find any acute disk herniations or compressive lesions. The thecal sac felt well decompressed on manual palpation. The motor examination on neuro monitoring appeared to be improved at this point. I did note that the patient had a very thickened ventral PLL. I cut the PLL from the dorsal aspect and tried to resect it with the 2 mm and 3 mm Kerrison punch. It was impossible for me to remove the entire length of the ligament given its attachments. Once I felt the ventral aspect of the thecal sac was well decompressed I obtained hemostasis with the bipolar. We again confirmed the location of our decompression on the lateral fluoroscopic image which demonstrated that we were both more cranial and caudal to the location of his stenosis on the most recent MRI scan. At this point, I did not feel safe to proceed forth with any of the resection of the tissues ventrally as I did not want to cause any further destabilization of his spine. I felt that everything was well decompressed on manual palpation. We closed the wound in multiple layers using Vicryl sutures for the deep layers and Dermabond for the skin. The patient's wounds were dressed sterilely. He was flipped supine onto the transfer cart, where he was awakened, extubated, and taken to the recovery room in stable condition. There were no complications. There was noted improvement overall in his motor function from the baseline to the end of the case. COMPLICATIONS: None. /[id number]/MODL MTDD
[2018-05-02] MEDS: HYDROCODONE/APAP 5/325 TAB PO PRN ×2 (02:11→03:33)
[2018-05-02] MEDS: METHOCARBAMOL 750 MG TAB PO PRN ×2 (03:32→14:34)
[2018-05-02] MEDS: ACETAMINOPHEN 500 MG TAB PO SCH ×3 (05:43→22:33)
[2018-05-02] MEDS: ceFAZolin 2 GM/DEXTROSE 100 ML IV SCH ×3 (05:44→22:33)
[2018-05-02] MEDS: GABAPENTIN 300 MG CAP PO SCH ×3 (05:44→22:32)
[2018-05-02] MEDS: TAMSULOSIN HCL 0.4 MG CAP PO SCH (08:17)
[2018-05-02] MEDS: SENNOSIDES/DOCUSATE SODIUM TAB PO SCH ×2 (08:17→19:54)
[2018-05-02] MEDS: FAMOTIDINE 20 MG TAB PO SCH ×2 (08:17→19:54)
--- NOTE | 2018-05-02 09:44 | NEUSURGPN ---
Assessment/Plan: 32 yo M POD#2 s/p L45 b/l Hemilaminotomy and central decompression severe back and leg pain, right leg numbness and foot weakness, urinary retention d/t large L45 disc herniation. POD#1 laminectomy L45 for Continued weakness and bowel/bladder symptoms including incontinence. Pain control, okay for ice to incision. PT/OT-Mobilize Martin d/c this morning, voiding trial this morning. DVT ppx MILLY's, SCDs, Lovenox Dispo planning likely to rehab in the next 1-[address] Tang Subjective: Pain improved. Continue foot weakness. Has not urinated post Martin pull this morning. Objective: NAD AAOx3 Incision c/d/i MAEx4, BLE 5/5 except: 3-/5 BL PF/DF, 2/5 EHL Sensation decreased BLE thighs and distally Catheter Insertion Date: 05/01/18 - Physician Discussed Patient with Dr.: Tang Neurosurgery Physical Exam - Vitals, I&O, Labs I and O 18 05/02/18 1818 05:59 05:59 05:59 Intake Total 2600 1190 Output Total 1615 2780 Balance 985 -1590 Weight 113.398 kg 113.398 kg Intake: Oral (ml) 1500 390 IV Intake (ml) 1000 800 IV Infused (ml) 100 ceFAZolin 2 GM/DEXTROSE 100 100 ml @ 200 mls/hr IV Q8H [facility] Rx#:[id number] Output: Urine (ml) 1600 2780 Catheter 1600 2780 Estimated Blood Loss (ml) 15 Other: Number of Voids Catheter 1 Incontinence 1 Number of Stools Incontinence 1 Bladder Scan Volume (ml) Incontinence 999 Vital Signs Temp Pulse Resp BP Pulse Ox 36.8 C 60 12 96/59 L 93 05/02/18 07:48 05/02/18 07:48 05/02/18 07:48 05/02/18 07:48 05/02/18 07:48 ICD10 Worksheet Patient Problems: Problems Problem Status Onset Low back pain with bilateral sciatica Acute Lumbar disc herniation Acute
--- NOTE | 2018-05-02 12:04 | ASMTCMCOM ---
CM Note CM Note Notes: [facility] have [facility] patient and submitted insurance auth to [employer]. They know that discharge is anticipated in 1-2 days and will let us know when they receive insurance authorization. Date Signed: 05/02/2018 12:04 PM Electronically Signed By:Ethel Serrano RN
[2018-05-02] MEDS: MAGNESIUM HYDROXIDE 30 ML UDCUP PO PRN (14:33)
[2018-05-02] MEDS: ENOXAPARIN 40 MG/0.4 ML SYR SC SCH (17:14)
[2018-05-02] MEDS: BISACODYL 10 MG SUPP PR PRN (19:54)
[2018-05-03] MEDS: GABAPENTIN 300 MG CAP PO SCH ×3 (05:51→22:18)
[2018-05-03] MEDS: ACETAMINOPHEN 500 MG TAB PO SCH ×3 (05:51→22:18)
[2018-05-03] MEDS: SENNOSIDES/DOCUSATE SODIUM TAB PO SCH ×2 (08:36→21:12)
[2018-05-03] MEDS: FAMOTIDINE 20 MG TAB PO SCH ×2 (08:36→21:12)
[2018-05-03] MEDS: TAMSULOSIN HCL 0.4 MG CAP PO SCH (08:36)
[2018-05-03] MEDS: ENOXAPARIN 40 MG/0.4 ML SYR SC SCH (08:37)
--- NOTE | 2018-05-03 15:47 | NEUSURGPN ---
Assessment/Plan: 32 yo M POD#3 s/p L45 b/l Hemilaminotomy and central decompression severe back and leg pain, right leg numbness and foot weakness, urinary retention d/t large L45 disc herniation. POD#1 laminectomy L45 for Continued weakness and bowel/bladder symptoms including incontinence. Continued urinary retention Pain control, okay for ice to incision. PT/OT-Mobilize Martin keep as patient failed voiding trial. DVT ppx MILLY's, SCDs, Lovenox Dispo planning likely to rehab once bed available and insurance approved Discussed with Dr. Tang Subjective: continue bilateral foot weakness. Decreased sensation when having BM. Was unable to void yesterday. pain tolerable Objective: NAD A&Ox3 Incision c/d/i BLE 5/5 except right EHL/DF 3-/5, left 4-/5 Catheter Insertion Date: 05/02/18 - Physician Patient Seen by : Clyde Neurosurgery Physical Exam - Vitals, I&O, Labs I and O 05/02/1818 05/04/18 05:59 05:59 05:59 Intake Total 1190 910 Output Total 2780 3000 1050 Balance -1590 -2090 -1050 Weight 113.398 kg Intake: Oral (ml) 390 800 IV Intake (ml) 800 IV Infused (ml) 110 ceFAZolin 2 GM/DEXTROSE 110 100 ml @ 200 mls/hr IV Q8H [facility] Rx#:[id number] Output: Urine (ml) 2780 3000 1050 Bedside Commode 100 Catheter 2780 2900 1050 Other: Number of Voids Catheter 1 1 Incontinence 1 Number of Stools Bedside Commode 1 0 Incontinence 1 1 Bladder Scan Volume (ml) Incontinence 999 Post Void Residual Scan Volume (ml) Bedside Commode 706 Vital Signs Temp Pulse Resp BP Pulse Ox 36.8 C 69 16 119/72 95 05/03/18 15:34 05/03/18 15:34 05/03/18 15:34 05/03/18 15:34 05/03/18 15:34 ICD10 Worksheet Patient Problems: Problems Problem Status Onset Low back pain with bilateral sciatica Acute Lumbar disc herniation Acute
--- NOTE | 2018-05-03 16:44 | ASMTCMCOM ---
CM Note CM Note Notes: Kylah ([phone]) with [employer] insurance states pt denied request for [facility] in [facility] (reference is [id number]). Denial is due to pt ambulating 60 feet and is min A with ADLs. Updated ESPERANZA Rivas, peer to peer ([phone]) completed and [employer] still denies inpatient rehab, pt updated. Kylah reports [employer] will auth SNF or outpatient. Pt SNF choice is [facility] in [facility], he is accepted. There are some costs: [place] in admissions states pt will owe $2224 at admission to cover $1500 deductible and 10 days of the $72.40 20% copay. Pt approved [facility] pursuing insurance authorization but states he does not know if he wants to/can pay that much for SNF admission. Pt likely will be reimbursed the $1500 for this hospital stay and will be reimbursed if he stay less than 10 days. Pt second choice SNF [facility] declines pt. Pt is encouraged to think about support he can set up at home if he needs to d/c home. Pt is also provided loan closet list to obtain walker. Pts reports his mother is available to transport him tomorrow where he chooses to d/c. D/c plan of care: SNF vs. home Date Signed: 05/03/2018 04:43 PM Electronically Signed By:ELLIOTT Melgar
[2018-05-04] MEDS: GABAPENTIN 300 MG CAP PO SCH ×3 (06:00→21:04)
[2018-05-04] MEDS: ACETAMINOPHEN 500 MG TAB PO SCH ×3 (06:00→21:04)
[2018-05-04] MEDS: ENOXAPARIN 40 MG/0.4 ML SYR SC SCH (09:25)
[2018-05-04] MEDS: FAMOTIDINE 20 MG TAB PO SCH ×2 (09:26→21:04)
[2018-05-04] MEDS: SENNOSIDES/DOCUSATE SODIUM TAB PO SCH ×2 (09:26→21:06)
[2018-05-04] MEDS: TAMSULOSIN HCL 0.4 MG CAP PO SCH (09:26)
[2018-05-04] MEDS: POLYETHYLENE GLYCOL 3350 17 GM PKT PO PRN (09:26)
--- NOTE | 2018-05-04 12:30 | NEUSURGPN ---
<NilayAmaris - Last Filed: 05/04/18 12:27> Assessment/Plan: Assessment/Plan: 32 yo M POD#4 s/p L45 b/l Hemilaminotomy and central decompression severe back and leg pain, right leg numbness and foot weakness, urinary retention d/t large L45 disc herniation. POD#2 laminectomy L45 for Continued weakness and bowel/bladder symptoms including incontinence. Continued urinary retention Pain control, okay for ice to incision. PT/OT-Mobilize Martin keep as patient failed voiding trial. DVT ppx MILLY's, SCDs, Lovenox Dispo planning- trying to get to inpatient rehab as this has been recommended by PT, OT, patient has continued mobility problems and is a fall risk, has continued urinary retention and need for catheterization, no safe to go home and absolutely needs inpatient rehab. Discussed with Dr. Tang Subjective: Continued weakness in right foot and numbness in right leg. Urinary retention managed with catheter for now. Frustrated at discharge situation. Back pain tolerable. Objective: NAD A&Ox3 Incision c/d/i BLE 5/5 except right EHL/DF 3-/5, left 4-/5 Catheter Insertion Date: 05/02/18 - Physician Discussed Patient with : Clyde Neurosurgery Physical Exam - Vitals, I&O, Labs I and O 05/03/18 05/04/18 05/05/18 05:59 05:59 05:59 Intake Total 910 1500 Output Total 3000 2200 800 Balance -2090 -700 -800 Intake: Oral (ml) 800 1500 IV Infused (ml) 110 ceFAZolin 2 GM/DEXTROSE 110 100 ml @ 200 mls/hr IV Q8H [facility] Rx#:[id number] Output: Urine (ml) 3000 2200 800 Bedside Commode 100 Catheter 2900 1800 800 Incontinence 400 Other: Number of Voids Catheter 1 Incontinence 1 Number of Stools Bedside Commode 1 0 Incontinence 1 Post Void Residual Scan Volume (ml) Bedside Commode 706 Vital Signs Temp Pulse Resp BP Pulse Ox 36.6 C 60 18 117/72 97 05/04/18 08:00 05/04/18 08:00 05/04/18 08:00 05/04/18 08:00 05/04/18 08:00 ICD10 Worksheet Patient Problems: Problems Problem Status Onset Low back pain with bilateral sciatica Acute Lumbar disc herniation Acute <Jonathan Tang - Last Filed: 05/05/18 08:01> Neurosurgery Physical Exam - Vitals, I&O, Labs I and O 05/04/18 05/05/18 05/06/18 05:59 05:59 05:59 Intake Total 1500 500 Output Total 2200 2200 Balance -700 -1700 Intake: Oral (ml) 1500 500 Output: Urine (ml) 2200 2200 Catheter 1800 2200 Incontinence 400 Other: Number of Voids Incontinence 1 Number of Stools Bedside Commode 0 1 Incontinence 1 Vital Signs Temp Pulse Resp BP Pulse Ox 36.4 C 58 L 16 110/60 97 05/04/18 23:04 05/04/18 23:04 05/04/18 23:04 05/04/18 23:04 05/04/18 23:04
[2018-05-04] MEDS: MAGNESIUM HYDROXIDE 30 ML UDCUP PO PRN (15:44)
--- NOTE | 2018-05-04 16:56 | ASMTCMCOM ---
CM Note CM Note Notes: Pt still not approved by [employer] for payment for [place] inpatient rehab, his first choice for d/c. ESPERANZA Pemberton contacting [employer] again today for second appeal and pt submitted a letter to the "urgent appeal" line. Pt does not know how long his appeal may take, pt appeals typically not timely, sometimes can take 60 days. Voicemail left for Kylah Kiser RN, CM [phone] asking to be updated on any appeals. By 16:30 no update on any appeal. Pt states he does not want to think about going anywhere but [facility]. CM had to reiterate the reality of the insurance situation and move him to consider the [facility]. Pt calls Ifeoma in admissions at [facility] to discuss if a payment plan is possible. Pt states he likely cannot afford the SNF. Pt as been in touch with [facility] and asked ESPERANZA Pemberton to call the doctor there, Dr. Go Prasad, but Ivis in admissions confirms insurance will not accept a peer to peer from any MD other than admitting so Dr. Prasad cannot help. There is nothing [facility] can do, pt is clinically accepted into their program but it is an insurance issue. Pt mother updated, she will call insurance and MD. Other SNF referrals sent in [employer] just as backup, pt declined from many of them but "interested" are the [facility], [facility] and [facility]. Cm will continue to follow. D/c plan: TBD inpatient rehab if insurance approves vs. SNF vs. home Date Signed: 05/04/2018 04:49 PM Electronically Signed By:ELLIOTT Melgar
[2018-05-04] MEDS ORDERED: PATCH REMOVAL 1 EA PATCH TD SCH (20:14)
[2018-05-05] MEDS: GABAPENTIN 300 MG CAP PO SCH ×3 (05:34→21:13)
[2018-05-05] MEDS: ACETAMINOPHEN 500 MG TAB PO SCH ×3 (05:34→21:12)
--- NOTE | 2018-05-05 07:48 | NEUSURGPN ---
Assessment/Plan: 32 yo M POD#5 s/p L45 b/l Hemilaminotomy and central decompression severe back and leg pain, right leg numbness and foot weakness, urinary retention d/t large L45 disc herniation. POD#4 laminectomy L45 for Continued weakness and bowel/bladder symptoms including incontinence. Continued urinary retention Pain control, okay for ice to incision. PT/OT-Mobilize Martin keep as patient failed voiding trial. - Have consulted Urology DVT ppx MILLY's, SCDs, Lovenox Dispo planning- trying to get to inpatient rehab as this has been recommended by PT, OT, patient has continued mobility problems and is a fall risk, has continued urinary retention and need for catheterization, no safe to go home and absolutely needs inpatient rehab. Has been denied by insurance x 2. Pt and case mgmt to work on placement Pt seen and discussed with Dr. Tang Call NS with any issues Subjective: Pt resting in bed, states that he had 3 small bms overnight Objective: AAOx3 NAD VSS MAEx4 Motor 5/5 bilat quad/hams, RLE 5-/5 for PF/DF. LLE 4+/5 for PF/DF Incision cdi Urinary Catheter in Place: Yes Urinary Catheter Indication: Neurogenic Bladder Catheter Insertion Date: 05/02/18 - Physician Discussed Patient with : Clyde Patient Seen by : Clyde Neurosurgery Physical Exam - Vitals, I&O, Labs I and O 05/04/18 05/05/18 05/06/18 05:59 05:59 05:59 Intake Total 1500 500 Output Total 2200 2200 Balance -700 -1700 Intake: Oral (ml) 1500 500 Output: Urine (ml) 2200 2200 Catheter 1800 2200 Incontinence 400 Other: Number of Voids Incontinence 1 Number of Stools Bedside Commode 0 1 Incontinence 1 Vital Signs Temp Pulse Resp BP Pulse Ox 36.4 C 58 L 16 110/60 97 05/04/18 23:04 05/04/18 23:04 05/04/18 23:04 05/04/18 23:04 05/04/18 23:04 ICD10 Worksheet Patient Problems: Problems Problem Status Onset Low back pain with bilateral sciatica Acute Lumbar disc herniation Acute
[2018-05-05] MEDS: POLYETHYLENE GLYCOL 3350 17 GM PKT PO PRN (09:58)
[2018-05-05] MEDS: ENOXAPARIN 40 MG/0.4 ML SYR SC SCH (09:58)
[2018-05-05] MEDS: SENNOSIDES/DOCUSATE SODIUM TAB PO SCH ×2 (09:58→21:14)
[2018-05-05] MEDS: FAMOTIDINE 20 MG TAB PO SCH ×2 (09:59→21:13)
[2018-05-05] MEDS: TAMSULOSIN HCL 0.4 MG CAP PO SCH (09:59)
--- NOTE | 2018-05-05 16:15 | ASMTCMCOM ---
CM Note CM Note Notes: Updated clinicals faxed to [facility] [phone] regarding pt expedited appeal this morning. This afternoon Josselin at [facility] calls CM to report pt now approved for [facility] for 7 days. Pt updated and will secure transport to [facility] for d/c tomorrow. Ivis in admission at [facility] updated and can admit pt by 1600 tomorrow. Mohan Tello updated and anticipates d/c orders can be input in the morning. Disc of all images obtained for pt d/c. Date Signed: 05/05/2018 04:14 PM Electronically Signed By:ELLIOTT Melgar
[2018-05-06] MEDS: ACETAMINOPHEN 500 MG TAB PO SCH (05:54)
[2018-05-06] MEDS: GABAPENTIN 300 MG CAP PO SCH (05:54)
[2018-05-06 07:49] VITALS: BP 109/67
[2018-05-06] MEDS: SENNOSIDES/DOCUSATE SODIUM TAB PO SCH (08:16)
[2018-05-06] MEDS: FAMOTIDINE 20 MG TAB PO SCH (08:17)
[2018-05-06] MEDS: TAMSULOSIN HCL 0.4 MG CAP PO SCH (08:17)
[2018-05-06] MEDS: POLYETHYLENE GLYCOL 3350 17 GM PKT PO PRN (08:18)
[2018-05-06] MEDS: ENOXAPARIN 40 MG/0.4 ML SYR SC SCH (08:19)
--- NOTE | 2018-05-06 08:23 | PDIAF ---
- Diagnosis Diagnosis: Cauda Equina Syndrome Code Status: Full Code - Medication Management Discharge Medications: Medications to Continue on Transfer Acetaminophen [Tylenol ES 500 mg (*)] 1,000 mg PO Q8HRS #30 tab 05/03/18 [Last Taken Unknown] Hydrocodone/APAP 5/325 [Winston 5/325 (*)] 1 - 2 tab PO Q4HRS PRN #30 tab [Last Taken Unknown] Methocarbamol [Robaxin 750 mg (*)] 750 mg PO QID PRN #30 tab 05/03/18 [Last Taken Unknown] Sennosides/Docusate Sodium [Senokot-S] 1 - 2 tab PO BID #30 tab 05/03/18 [Last Taken Unknown] Tamsulosin HCl [Flomax 0.4 MG (*)] 0.4 mg PO DAILY #30 cap 05/03/18 [Last Taken Unknown] celeCOXIB [CeleBREX] 100 mg PO BID #30 05/03/18 [Last Taken 04/28/18 200mg] Gabapentin [Neurontin 300 MG (*)] 300 mg PO Q8HRS cap 05/06/18 [Last Taken Unknown] Discharge Medications: Refer to the Discharge Home Medication list for PRN reason. - Orders Services needed: Registered Nurse, Physical Therapy, Occupational Therapy Diet Recommendation: no restrictions on diet Diet Texture: Regular Texture Diet Mina Stockings Discontinue Date: when walking on won 2-3 times per day for 10 minutes at a time Wound Care Instructions: Follow up in 2-3 weeks. No bending twisting, lifting >5 -10lbs. May shower, no scrubbing incision, no dressing needed, pat clean and dry with towel keep clean and dry. Martin replaced due to urinary retention on . Removed 05/05/2018 and voiding well on own now with some residual still. Encouraged bladder training in rehab Activity/Weight Bearing Restrictions: Follow up in 2-3 weeks. No bending twisting, lifting >5-10lbs. May shower, no scrubbing incision, no dressing needed, pat clean and dry with towel keep clean and dry. Martin replaced due to urinary retention on 05/02/18. Removed 05/05/2018 and voiding well on own now with some residual still. Encouraged bladder training in rehab Additional Instructions: Follow up in 2-3 weeks. No bending twisting, lifting >5-10lbs May shower, no scrubbing incision, no dressing needed, pat clean and dry with towel keep clean and dry Martin replaced due to urinary retention on 05/02/18. Removed 05/05/2018 and voiding well on own now with some residual still. Encouraged bladder training in rehab. - Follow Up Care Current Providers and Referrals: Jonathan Tang MD [Primary Care Provider] - As per Instructions
--- NOTE | 2018-05-06 08:35 | NEUSURGPN ---
Assessment/Plan: Assessment/Plan: Assessment/Plan: 32 yo M POD#6 s/p L45 b/l Hemilaminotomy and central decompression severe back and leg pain, right leg numbness and foot weakness, urinary retention d/t large L45 disc herniation. POD#5 laminectomy L45 for Continued weakness and bowel/bladder symptoms including incontinence. Continued urinary retention Pain control, doign well on current regimen. PT/OT-Mobilize Martin removed yesterday and patient began voiding on his own, this morning still with 200 on residual but prior voids left 90 or less, encourage bladder training Patient with small BC yesterday, small ileus on KUB but abdomen soft DVT ppx MILLY's, SCDs, Lovenox Dispo planning- Patient finally approved to inpatient rehab in [facility]. Pending transfer there today Pt discussed with Dr. Tang Call NS with any issues Subjective: Pt doign well this am. Happy he is going to rehab. Voided this moring and states he still has to push a lot to get urine out and had residual of 200 this morning, but happy to be voiding on own. Right foot weakness the same this morning. Objective: AAOx3 NAD VSS MAEx4 Motor 5/5 bilat quad/hams, RLE 5-/5 except for PF/DF- DF 2/5, plantar 3/5 EHL 2/ 5. LLE 4+/5 for PF/DF Incision cdi Catheter Insertion Date: 05/02/18 - Physician Discussed Patient with : Clyde Neurosurgery Physical Exam - Vitals, I&O, Labs I and O 05/05/18 05/06/18 05/07/18 05:59 05:59 05:59 Intake Total 500 2350 Output Total 2200 2330 450 Balance -1700 20 -450 Intake: Oral (ml) 500 2350 Output: Urine (ml) 2200 2330 450 Bedside Commode 50 200 Catheter 2200 900 Toilet 30 Urinal 1350 250 Other: Intake Quantity Yes Sufficient Number of Voids Bedside Commode 1 Catheter 1 Urinal 1 1 Number of Stools Bedside Commode 1 1 1 Incontinence 1 Urinal 1 Bladder Scan Volume (ml) Bedside Commode 247 Post Void Residual Scan Volume (ml) Toilet 91 Urinal 271 47 Vital Signs Temp Pulse Resp BP Pulse Ox 36.8 C 83 16 109/67 96 05/06/18 07:48 05/06/18 07:48 05/06/18 07:48 05/06/18 07:48 05/06/18 07:48 ICD10 Worksheet Patient Problems: Problems Problem Status Onset Low back pain with bilateral sciatica Acute Lumbar disc herniation Acute
--- NOTE | 2018-05-06 10:10 | PDGENHP ---
History & Physical Chief Complaint: Urinary retention History of Present Illness: Cauda equina w Urinary retention. Pertinent Past, Social, Family History: Not contributory Cardiorespiratory Assessment: Cauda equina. Martin removed yesterday and voiding on own w minimal residual. Recommend to continue to encourage him to void, double void. Bladder scan if no void in 6 hrs, and intermittent catheteize for PVRs>400ml. I spoke w GRISEL PA re above. He can follow up w me when back in [place] if needed.
--- NOTE | 2018-05-06 14:05 | ASMTLACE ---
LACE Length of stay for Answers: 7-13 days current admission Acuity / Level of Answers: Yes Care: Did the patient have an inpatient admission? Comorbidities - select Answers: Opioid dependence all that apply / Chronic pain # of Emergency department Answers: 1-2 visits in the last 6 months Score: 13 Date Signed: 05/06/2018 02:05 PM Electronically Signed By:ELLIOTT Melgar
--- NOTE | 2018-05-06 14:08 | ASDISCHSUM ---
Discharge Information Plan Status:Inpatient Rehab Medically Cleared to Leave: Discharge Date:05/06/2018 11:23 AM D/C Disposition: ADT D/C Disposition:Other Rehab, Not [facility] Projected Discharge Date:05/05/2018 11:00 AM Transportation at D/C:Family Discharge Delay Reason: Follow-Up Date:05/05/2018 11:00 AM Discharge Slot: Final Diagnosis: Placement Information Referral Type:Acute Care Referral ID:[id number] Provider Name:[facility] Address 1:[address] Address 2: City:[place] Selection Factors: State:[place] Referral Type:*Alf/SNF Referral ID:[id number] Provider Name: Address 1: Phone Number: Address 2: Fax Number: City: Selection Factors: State: Patient Contact Information Contact Name:ANEL Relationship:Mother Address: Work Phone: City:[place] Alternate Phone: [facility]/Zip Code:[place] Email: Financial Information Financial Class:HMO and PPO Plans Primary Plan Desc:[employer] Primary Plan Number:[id number] Secondary Plan Desc: Secondary Plan Number: Assessment Information LACE LACE Length of stay for Answers: 7-13 days current admission Acuity / Level of Answers: Yes Care: Did the patient have an inpatient admission? Comorbidities - select Answers: Opioid dependence all that apply / Chronic pain # of Emergency department Answers: 1-2 visits in the last 6 months Score: 13 Date Signed: 05/06/2018 02:05 PM Electronically Signed By:ELLIOTT Melgar [facility] CM Progress Note CM Note CM Note Notes: Pt's chart reviewed for D/C planning. Pt is a 32 y/o male with a hx of multiple lumbar disc herniation who came to the ED yesterday due to severe pain, numbness and paresthesias in his bilateral lower extremities. MRI showed multilevel degenerative disc and degenerative joint disease of the lumbar spine superimposed on a component of congenital spinal stenosis. His current pain is out of control and he is unable to function. Surgery planned for 04/30. Surgery would be a bilateral 4/5 hemilaminotomy with disectomy and central decompression. Pt lives in [place]. His mother also lives in [place], Narcisa, . CM will follow. D/C Plan: TBD Date Signed: 04/29/2018 10:13 AM Electronically Signed By:Corinne Smith [facility] CM Progress Note CM Note CM Note Notes: PT/OT recommending inpatient rehab. Pt lives in [facility] and [facility] [phone] F [phone]. Referral sent via [employer]. There is no one available in Admissions today. Not sure if they will need a PASRR, asked them to let us know. CM will continue to follow. Date Signed: 05/01/2018 02:15 PM Electronically Signed By:ELLIOTT Catherine [facility] CM Progress Note CM Note CM Note Notes: [facility] They have [facility] patient and submitted insurance auth to [facility]. They know that discharge is anticipated in 1-2 days and will let us know when they receive insurance authorization. Date Signed: 05/02/2018 12:04 PM Electronically Signed By:Ethel Serrano RN [facility] CM Progress Note CM Note CM Note Notes: Kylah ([phone]) with [employer] insurance states pt denied request for [facility] in [facility] (reference is [id number]). Denial is due to pt ambulating 60 feet and is min A with ADLs. Updated ESPERANZA Rivas, peer to peer ([phone]) completed and [facility] still denies inpatient rehab, pt updated. Kylah reports [facility] will auth SNF or outpatient. Pt SNF choice is [facility] in [facility], he is accepted. There are some costs: Ifeoma in admissions states pt will owe $2224 at admission to cover $1500 deductible and 10 days of the $72.40 20% copay. Pt approved [facility] pursuing insurance authorization but states he does not know if he wants to/can pay that much for SNF admission. Pt likely will be reimbursed the $1500 for this hospital stay and will be reimbursed if he stay less than 10 days. Pt second choice SNF [facility] declines pt. Pt is encouraged to think about support he can set up at home if he needs to d/c home. Pt is also provided loan closet list to obtain walker. Pts reports his mother is available to transport him tomorrow where he chooses to d/c. D/c plan of care: SNF vs. home Date Signed: 05/03/2018 04:43 PM Electronically Signed By:ELLIOTT Melgar [facility] LEANNE Progress Note CM Note LEANNE Note Notes: Pt still not approved by [facility] for payment for [facility], his first choice for d/c. ESPERANZA Pemberton contacting [facility] again today for second appeal and pt submitted a letter to the "urgent appeal" line. Pt does not know how long his appeal may take, pt appeals typically not timely, sometimes can take 60 days. Voicemail left for Kylah Kiser RN, CM [phone] asking to be updated on any appeals. By 16:30 no update on any appeal. Pt states he does not want to think about going anywhere but [facility]. CM had to reiterate the reality of the insurance situation and move him to consider the [facility]. Pt calls Ifeoma in admissions at [facility] to discuss if a payment plan is possible. Pt states he likely cannot afford the SNF. Pt as been in touch with [facility] and asked ESPERANZA Pemberton to call the doctor there, Dr. Go Prasad, but Ivis in admissions confirms insurance will not accept a peer to peer from any MD other than admitting so Dr. Prasad cannot help. There is nothing [facility] can do, pt is clinically accepted into their program but it is an insurance issue. Pt mother updated, she will call insurance and MD. Other SNF referrals sent in [facility] just as backup, pt declined from many of them but "interested" are the [facility] and [facility]. Cm will continue to follow. D/c plan: TBD inpatient rehab if insurance approves vs. SNF vs. home Date Signed: 05/04/2018 04:49 PM Electronically Signed By:ELLIOTT Melgar [facility] Progress Note CM Note CM Note Notes: Updated clinicals faxed to [facility] [phone] regarding pt expedited appeal this morning. This afternoon Josselin at [facility] calls CM to report pt now approved for [facility] for 7 days. Pt updated and will secure transport to [place] for d/c tomorrow. Ivis in admission at [facility] updated and can admit pt by 1600 tomorrow. Mohan Tello updated and anticipates d/c orders can be input in the morning. Disc of all images obtained for pt d/c. Date Signed: 05/05/2018 04:14 PM Electronically Signed By:ELLIOTT Melgar [facility] Progress Note CM Note CM Note Notes: Pt medically stable for d/c to [facility]. Pt brother CHRISTOPHER transports. Orders sent via [employer]. JERONIMO Mora to call report. Date Signed: 05/06/2018 02:07 PM Electronically Signed By:ELLIOTT Melgar Intervention Information
--- NOTE | 2018-05-06 14:08 | ASMTCMCOM ---
CM Note CM Note Notes: Pt medically stable for d/c to [facility]. Pt brother [place] transports. Orders sent via [employer]. JERONIMO Mora to call report. Date Signed: 05/06/2018 02:07 PM Electronically Signed By:ELLIOTT Melgar
== END 2018-05-06 11:23 | DRG 519 ==
LOC: INTOOBSV 13:57 → F3N 14:54 → OBSVTOIN 04-29 14:40
PROVIDERS: ADMIT Neurological Surgery; ATTEND Neurological Surgery
DX: M48.061 Spinal stenosis, lumbar region without neurogenic claudication (principal); G83.4 Cauda equina syndrome; R33.9 Retention of urine, unspecified; M51.16 Intervertebral disc disorders with radiculopathy, lumbar region; R32 Unspecified urinary incontinence; M51.26 Other intervertebral disc displacement, lumbar region; E86.9 Volume depletion, unspecified
CPT/HCPCS: 96374; 97110-GP; 97112-GP; 97116-GP; 97161-GP; 97164-GP; 97165-GO; 97168-GO; 97530-GO; 97530-GP; 97535-GO; G0378; J0171; J0690; J1100; J1170; J1650; J1885; J2250; J2270; J2370; J2405; J2704; J3010